=== PATIENT | male | born 1945 | race Caucasian/White ===

== ENCOUNTER 2021-01-22 06:09 | Inpatient (IN) | payer MEDICARE, OTHER ==
[2021-01-22] MEDS ORDERED: Fentanyl 100 MCG/2 ML VIAL ONE ×2 (06:37→11:11)
[2021-01-22] MEDS ORDERED: Thrombin 5000 UNITS/5 ML VIAL ONE (07:02)
[2021-01-22] MEDS ORDERED: Lidocaine 1% PF 5 ML VIAL ONE (07:42)
[2021-01-22] MEDS ORDERED: Ondansetron PF 4 MG/2 ML Vial ONE (07:42)
[2021-01-22] MEDS ORDERED: ePHEDrine 50 MG/ML VIAL ONE (07:42)
[2021-01-22] MEDS ORDERED: PHENYLEPHRINE-NS 100 MCG/ML 10 ML SYRINGE ONE ×2 (07:42→08:42)
[2021-01-22] MEDS ORDERED: PROPOFOL 200 MG/20 ML VIAL ONE (07:42)
[2021-01-22] MEDS ORDERED: Dexamethasone 20 MG/5 ML VIAL ONE (07:42)
[2021-01-22] MEDS ORDERED: Rocuronium Bromide 10 MG/ML (10ML VIAL) ONE (07:42)
[2021-01-22] MEDS ORDERED: Glycopyrrolate 0.2 MG/ML 5 ML SYRINGE ONE (07:42)
[2021-01-22] MEDS ORDERED: Ondansetron HCl/PF 4 MG/2 ML Vial IVP PRN (08:16)
[2021-01-22] MEDS ORDERED: Promethazine HCl 25 MG/ML VIAL IM PRN (08:16)
[2021-01-22] MEDS ORDERED: HYDROmorphone 2 MG/ML VIAL SLOW IVP PRN (08:16)
[2021-01-22] MEDS ORDERED: Promethazine HCl 25 MG/ML VIAL IVPB PRN (08:16)
[2021-01-22] MEDS ORDERED: ePHEDrine Sulfate 50 MG/10 ML VIAL ONE (08:42)
[2021-01-22] MEDS ORDERED: SUGAMMADEX SODIUM 200 MG/2 ML VIAL ONE (08:45)
[2021-01-22] MEDS ORDERED: Mag-Al 1200 mg/1200 mg/30 ML UDCUP PO PRN (10:12)
[2021-01-22] MEDS ORDERED: Bisacodyl 10 MG SUPP PR PRN (10:12)
[2021-01-22] MEDS ORDERED: tiZANidine HCl 4 MG TAB PO PRN (10:12)
[2021-01-22] MEDS ORDERED: Acetaminophen 325 MG TAB PO PRN (10:12)
[2021-01-22] MEDS ORDERED: HYDROcodone/Acetaminophen 7.5/325 mg Tablet PO PRN (10:12)
[2021-01-22] MEDS ORDERED: Acetaminophen/Codeine 30-300mg Tablet PO PRN (10:12)
[2021-01-22] MEDS ORDERED: traMADol HCl 50 MG TAB PO PRN (10:12)
[2021-01-22] MEDS ORDERED: Morphine 2 MG/ML VIAL SLOW IVP PRN (10:12)
[2021-01-22] MEDS ORDERED: Milk Of Magnesia 30 ML UDCUP PO PRN (10:12)
[2021-01-22] MEDS ORDERED: tiZANidine HCl 4 MG TAB ONE (10:28)
[2021-01-22 16:37] VITALS: BMI 38.4
[2021-01-22] MEDS: CEFAZOLIN 2 GM in Premix Bag 1 BAG IVPB SCH ×2 (16:51→22:08)
[2021-01-22] MEDS: Sodium Chloride 0.9% 1,000 ML IV SCH (16:54)
[2021-01-22] MEDS: Tamsulosin HCl 0.4 MG CAP PO SCH (20:50)
[2021-01-22] MEDS: metFORMIN 500 MG TAB PO SCH (20:50)
[2021-01-22] MEDS ORDERED: Atorvastatin Calcium 10 MG TAB PO SCH (21:00)
[2021-01-23] MEDS: CEFAZOLIN 2 GM in Premix Bag 1 BAG IVPB SCH (05:43)
[2021-01-23] MEDS: Sodium Chloride 0.9% 1,000 ML IV SCH (05:43)
[2021-01-23 06:07] LABS: #Lymphocytes 1.5 thou/uL (1.20-3.40); #Monocytes 1.1 thou/uL (0.11-0.59); #Neutrophils 10.8 thou/uL (1.40-6.50); %Basophils 0.2 % (0.0-1.0); %Eosinophils 0.1 % (0.0-10.0); %Lymphocytes 11.4 % (21.0-51.0); %Monocytes 8.1 % (0.0-10.0); %Neutrophils 80.3 % (42.0-75.0); Hemoglobin 12.9 g/dL (14.0-18.0); Mean Corpuscular HGB CONC 33.3 g/dL (32.0-36.0); Mean Corpuscular Volume 93.2 fL (78.0-98.0); Mean Platelet Volume 8.8 fL (7.4-10.4); Platelet Count 189 thou/uL (130-400); RBC Distribution Width 12.4 % (11.5-14.5); Red Blood Cell (RBC) Count 4.18 mill/uL (4.70-6.10); White Blood Cell (WBC) Count 13.5 thou/uL (4.8-10.8)
[2021-01-23 06:30] LABS: Anion Gap 13 mmol/L (10-20); BUN (Urea Nitrogen) 17 mg/dL (8.4-25.7); Calc. Creatinine Clearance 95 mL/min (70-130); Calcium 9.1 mg/dL (7.8-10.44); Carbon Dioxide 25 mmol/L (23-31); Chloride 104 mmol/L (98-107); Glucose 202 mg/dL (83-110); Potassium 4.7 mmol/L (3.5-5.1); Sodium 137 mmol/L (136-145)
[2021-01-23] MEDS ORDERED: hydrALAZINE 20 MG/ML VIAL SLOW IVP PRN (06:37)
[2021-01-23 07:29] VITALS: TEMP 98.1
[2021-01-23] MEDS ORDERED: Escitalopram Oxalate 10 mg Tablet PO SCH (09:00)
[2021-01-23] MEDS ORDERED: Finasteride 5 MG TAB PO SCH (09:00)
[2021-01-23] MEDS ORDERED: Loratadine 10 MG TAB PO SCH (09:00)
[2021-01-23] MEDS ORDERED: Ramipril 5 MG CAP PO SCH (09:00)
[2021-01-23] MEDS ORDERED: Alogliptin 25 MG TAB PO SCH (09:00)
[2021-01-23] MEDS: metFORMIN 500 MG TAB PO SCH (10:48)
[2021-01-23] MEDS: Tamsulosin HCl 0.4 MG CAP PO SCH (10:48)
[2021-01-23 12:01] VITALS: BP 145/70
== END 2021-01-23 15:00 | disposition home or self-care (01) | DRG 472 ==
LOC: SDC 06:09 → SURG B 10:17 → OBSVTOIN 01-23 08:30
PROVIDERS: ADMIT Surgery; ATTEND Surgery
PROC: 0RG20A0 Fusion of 2 or more Cervical Vertebral Joints with Interbody Fusion Device, Anterior Approach, Anterior Column, Open Approach (ICD-10-PCS; principal; 2021-01-22)
PROC: 0RB30ZZ Excision of Cervical Vertebral Disc, Open Approach (ICD-10-PCS; 2021-01-22)
PROC: 01N10ZZ Release Cervical Nerve, Open Approach (ICD-10-PCS; 2021-01-22)
PROC: 00NW0ZZ Release Cervical Spinal Cord, Open Approach (ICD-10-PCS; 2021-01-22)
DX: M48.02 Spinal stenosis, cervical region (principal); G99.2 Myelopathy in diseases classified elsewhere; F32.9 Major depressive disorder, single episode, unspecified; M54.12 Radiculopathy, cervical region; E78.5 Hyperlipidemia, unspecified; I10 Essential (primary) hypertension; I25.10 Atherosclerotic heart disease of native coronary artery without angina pectoris; G47.30 Sleep apnea, unspecified; N40.0 Benign prostatic hyperplasia without lower urinary tract symptoms; E66.9 Obesity, unspecified; Z68.38 Body mass index [BMI] 38.0-38.9, adult
CPT/HCPCS: 36415; 36416; 76000; 80048; 85025; 86850; 86900; 86901; 96374; 96376; C1713; C1768; C1776; G0378; J0690; J1100; J2405; J2704; J3010; J3490; J7050